=== PATIENT | female | born 1980 | race Two or more races ===

== ENCOUNTER → 2017-09-04 | Outpatient (CLI) | payer OTHER ==
[~2017-09-04] MED LIST: BIRTH CONTROL PILL PO; CIPR500T87 PO; HYDR-3237 PO; HYDR-3240 PO; LEVO750T26 PO; LISI-167 PO; SULF1TAB24 PO
[2017-09-04 16:25] LABS: BASOPHILS # (AUTO) 0.05 x10^3/uL (0-0.1); BASOPHILS % (AUTO) 0 % (0-1); EOSINOPHILS # (AUTO) 0.25 x10^3/uL (0-0.4); EOSINOPHILS % (AUTO) 2 % (1-7); LYMPHOCYTES # (AUTO) 3.26 x10^3/uL (1-3.4); LYMPHOCYTES % (AUTO) 26 % (22-44); MD NO; MEAN CORPUSCULAR HGB CONC 34.3 g/dL (32.4-35.8); MEAN CORPUSCULAR VOLUME 90.3 fL (80-100); MEAN PLATELET VOLUME 8.7 fL (7.4-10.4); MONOCYTES # (AUTO) 0.61 x10^3/uL (0.2-0.8); MONOCYTES % (AUTO) 5 % (2-9); NEUTROPHILS # (AUTO) 8.32 x10^3/uL (1.8-6.8); NEUTROPHILS % (AUTO) 67 % (42-75); PLATELET COUNT 342 x10^3/uL (130-400); RED BLOOD COUNT 4.36 x10^6/uL (3.82-5.3); RED CELL DISTRIBUTION WIDTH 13.3 % (9.6-15.2)
[2017-09-04 16:30] LABS: INTERNATIONAL NORMALIZED RATIO 0.96 (0.93-1.1); PROTHROMBIN TIME 9.9 Seconds (9.6-11.5)
[2017-09-04 16:34] LABS: ALANINE AMINOTRANSFERASE 40 U/L (12-78); ALBUMIN 3.8 g/dL (3.4-5.0); ANION GAP 9 mmol/L (5-15); CALCIUM 8.5 mg/dL (8.5-10.1); CHLORIDE 107 mmol/L (98-107); CREATININE 1.09 mg/dL (0.55-1.02)
[2017-09-04 16:35] LABS: ALKALINE PHOSPHATASE 112 U/L (45-117); BILIRUBIN,TOTAL 0.3 mg/dL (0.2-1.0); TOTAL PROTEIN 7.8 g/dL (6.4-8.2)
[2017-09-04 16:40] LABS: MICROSCOPIC NOT IND
== END | disposition home or self-care (01) ==
LOC: STAR 15:02
PROVIDERS: ATTEND Urology
DX: Z01.818 Encounter for other preprocedural examination (principal); N13.30 Unspecified hydronephrosis; Q62.11 Congenital occlusion of ureteropelvic junction
CPT/HCPCS: 36415; 80053; 81003; 85025; 85610; 85730; 87086

== ENCOUNTER 2017-09-15 05:38 | Day surgery (SDC) | payer OTHER ==
[~2017-09-15] VITALS: Ht 154.9 cm; Wt 73.9 kg
[2017-09-15] MEDS ORDERED: LACTATED RINGERS 1,000 ML IV SCH (06:04)
[2017-09-15 06:09] VITALS: BP 120/82
[2017-09-15 06:32] LABS: HCG UR SG 1.018 (1.003-1.030)
[2017-09-15] MEDS ORDERED: KETAMINE 10 MG/ML, 20ML ONE (06:40)
[2017-09-15] MEDS ORDERED: MIDAZOLAM 1 MG/ML, 2ML ONE (06:40)
[2017-09-15] MEDS ORDERED: FENTANYL PF 250 MCG/5ML ONE (06:41)
[2017-09-15] MEDS ORDERED: LIDOCAINE GEL 2%, 5ML ONE (06:41)
[2017-09-15] MEDS ORDERED: DEXAMETHASONE 4 MG/ML, 1ML ONE (06:41)
[2017-09-15] MEDS ORDERED: ONDANSETRON 2MG/ML, 2ML ONE (06:41)
[2017-09-15] MEDS ORDERED: PROPOFOL 10 MG/ML, 20ML ONE (06:41)
[2017-09-15] MEDS ORDERED: ROCURONIUM 10 MG/ML,10ML ONE (06:41)
[2017-09-15] MEDS ORDERED: BUPIVACAINE/PF 0.25% ONE (06:51)
[2017-09-15] MEDS ORDERED: EPINEPHRINE 1 MG/ML, 1ML ONE (06:51)
[2017-09-15] MEDS ORDERED: THROMBIN 5,000 UNIT VIAL TP ONE (06:51)
[2017-09-15] MEDS ORDERED: INDIGO CARMINE 0.8%, 5ML ONE (06:51)
[2017-09-15] MEDS ORDERED: GENTAMICIN 80 MG/2 ML ONE (08:09)
[2017-09-15] MEDS ORDERED: ONDANSETRON 2MG/ML, 2ML IVPush PRN (09:00)
[2017-09-15] MEDS ORDERED: HYDROmorphone 1 MG/ML, 1ML IV PRN (09:00)
[2017-09-15] MEDS ORDERED: EPHEDRINE 50 MG/ML, 1ML IVPush PRN (09:00)
[2017-09-15] MEDS ORDERED: PROMETHAZINE 25 MG/ML, 1ML IV PRN (09:00)
[2017-09-15] MEDS ORDERED: FENTANYL PF 100 MCG/2ML IV PRN (09:00)
[2017-09-15] MEDS ORDERED: MIDAZOLAM 1 MG/ML, 2ML IV PRN (09:00)
[2017-09-15] MEDS ORDERED: OXYcodone 5 MG/5 ML ORAL.SOL UDC PO PRN (09:00)
[2017-09-15] MEDS ORDERED: OMNIPAQUE 350 MG/ML, 50 ML BOTTLE ONE (09:21)
[2017-09-15] MEDS ORDERED: SUGAMMADEX 200 MG/2 ML IVPush ONE (09:30)
== END 2017-09-15 12:10 ==
LOC: OUT 05:38
PROVIDERS: ATTEND Urology
DX: N13.5 Crossing vessel and stricture of ureter without hydronephrosis (principal)
CPT/HCPCS: 52332; 52341; 74420; 81025; C1726; C1758; C1760; C1769; C2617; C2627; J0171; J1100; J1580; J2250; J2405; J2704; J3010; J3490; J7120; Q9967

== ENCOUNTER 2017-10-29 12:21 | Inpatient (IN) | payer OTHER ==
[~2017-10-29] VITALS: Ht 157.5 cm; Wt 75.1 kg
[2017-10-29 13:30] LABS: BASOPHILS % (AUTO) 1 % (0-1); EOSINOPHILS # (AUTO) 0.08 x10^3/uL (0-0.4); EOSINOPHILS % (AUTO) 1 % (1-7); LYMPHOCYTES % (AUTO) 17 % (22-44); MD NO; MEAN CORPUSCULAR HEMOGLOBIN 31.2 pg (27.0-34.8); MEAN CORPUSCULAR HGB CONC 34.4 g/dL (32.4-35.8); MEAN CORPUSCULAR VOLUME 90.8 fL (80-100); MEAN PLATELET VOLUME 8.8 fL (7.4-10.4); MONOCYTES # (AUTO) 1.36 x10^3/uL (0.2-0.8); MONOCYTES % (AUTO) 9 % (2-9); NEUTROPHILS # (AUTO) 11.45 x10^3/uL (1.8-6.8); NEUTROPHILS % (AUTO) 73 % (42-75); PLATELET COUNT 285 x10^3/uL (130-400); RED CELL DISTRIBUTION WIDTH 13.6 % (9.6-15.2)
[2017-10-29] MEDS ORDERED: SODIUM CHLORIDE FLUSH 10ML SYR IVF ONE (13:30)
[2017-10-29 13:42] LABS: ALBUMIN 3.5 g/dL (3.4-5.0); ANION GAP 7 mmol/L (5-15); CALCIUM 8.3 mg/dL (8.5-10.1); CHLORIDE 104 mmol/L (98-107); CREATININE 0.78 mg/dL (0.55-1.02)
[2017-10-29 13:45] LABS: CULTURE INDICATED? YES; MICROSCOPIC INDICATED
[2017-10-29] MEDS ORDERED: ONDANSETRON ODT 4 MG ONE (14:28)
[2017-10-29] MEDS ORDERED: CEFTRIAXONE PMX 1GM/50ML 50 ML ONE (14:29)
[2017-10-29] MEDS ORDERED: MORPHINE SULFATE 4 MG/ML, 1ML ONE ×2 (14:29→21:54)
[2017-10-29] MEDS ORDERED: ONDANSETRON ODT 4 MG PO ONE (14:30)
[2017-10-29] MEDS ORDERED: CEFTRIAXONE PMX 1GM/50ML 50 ML IVPB ONE (14:30)
[2017-10-29] MEDS ORDERED: MORPHINE SULFATE 4 MG/ML, 1ML IVPush PRN (14:30)
[2017-10-29] MEDS ORDERED: SODIUM CHLORIDE 0.9% 1,000ML IVBOLUS ONE (16:00)
[2017-10-29] MEDS ORDERED: SODIUM CHLORIDE 0.9% 1,000 ML IV ONE (16:45)
[2017-10-29] MEDS ORDERED: SODIUM CHLORIDE FLUSH 10ML SYR IVF PRN (17:00)
[2017-10-29] MEDS ORDERED: ONDANSETRON 2MG/ML, 2ML IVPush PRN (17:30)
[2017-10-29] MEDS ORDERED: hydrALAzine 20 MG/ML, 1ML IVPush PRN (17:30)
[2017-10-29] MEDS: SODIUM CHLORIDE 0.9% 1,000 ML IV SCH (18:20)
[2017-10-29] MEDS: ENOXAPARIN 40 MG/0.4 ML SQ SCH (18:21)
[2017-10-29 20:36] VITALS: BP 116/78
[2017-10-29] MEDS: morphine SULFATE 10 MG/ML, 1ML IVPush PRN (21:57)
[2017-10-30 01:33] VITALS: BP 108/69
[2017-10-30] MEDS ORDERED: MORPHINE SULFATE 4 MG/ML, 1ML ONE (05:16)
[2017-10-30] MEDS: morphine SULFATE 10 MG/ML, 1ML IVPush PRN (05:18)
[2017-10-30] MEDS: SODIUM CHLORIDE 0.9% 1,000 ML IV SCH ×2 (05:18)
[2017-10-30 05:36] LABS: BASOPHILS # (AUTO) 0.05 x10^3/uL (0-0.1); BASOPHILS % (AUTO) 0 % (0-1); EOSINOPHILS # (AUTO) 0.05 x10^3/uL (0-0.4); EOSINOPHILS % (AUTO) 0 % (1-7); LYMPHOCYTES % (AUTO) 14 % (22-44); MD NO; MEAN CORPUSCULAR HEMOGLOBIN 31.3 pg (27.0-34.8); MEAN CORPUSCULAR HGB CONC 34.5 g/dL (32.4-35.8); MEAN CORPUSCULAR VOLUME 90.8 fL (80-100); MEAN PLATELET VOLUME 8.7 fL (7.4-10.4); MONOCYTES # (AUTO) 0.82 x10^3/uL (0.2-0.8); MONOCYTES % (AUTO) 6 % (2-9); NEUTROPHILS # (AUTO) 10.19 x10^3/uL (1.8-6.8); NEUTROPHILS % (AUTO) 79 % (42-75); PLATELET COUNT 245 x10^3/uL (130-400); RED BLOOD COUNT 3.83 x10^6/uL (3.82-5.3); RED CELL DISTRIBUTION WIDTH 13.4 % (9.6-15.2)
[2017-10-30 05:52] LABS: CHLORIDE 106 mmol/L (98-107)
[2017-10-30 06:00] LABS: ALANINE AMINOTRANSFERASE 33 U/L (12-78); ALKALINE PHOSPHATASE 92 U/L (45-117); ANION GAP 6 mmol/L (5-15); BILIRUBIN,TOTAL 0.9 mg/dL (0.2-1.0); CALCIUM 7.9 mg/dL (8.5-10.1); CREATININE 0.73 mg/dL (0.55-1.02); TOTAL PROTEIN 6.8 g/dL (6.4-8.2)
[2017-10-30 06:40] VITALS: BP 105/68
[2017-10-30] MEDS ORDERED: POTASSIUM PHOSPHATE 44 MEQ in SODIUM CHLORIDE 0.9% 500 ML IV ONE (08:30)
[2017-10-30] MEDS: LISINOPRIL 10 MG TABLET PO SCH (08:58)
[2017-10-30 12:28] VITALS: BP 105/71
[2017-10-30] MEDS ORDERED: FUROSEMIDE 20 MG/2 ML ONE ×2 (13:56)
[2017-10-30] MEDS ORDERED: CEFTRIAXONE PMX 1GM/50ML 50 ML IV SCH (14:30)
[2017-10-30] MEDS: ENOXAPARIN 40 MG/0.4 ML SQ SCH (17:01)
[2017-10-30 19:02] VITALS: BP 109/70
[2017-10-30] MEDS: ACETAMINOPHEN 325 MG TABLET PO PRN (20:01)
[2017-10-31 02:49] VITALS: BP 93/62
[2017-10-31 05:08] LABS: BASOPHILS # (AUTO) 0.09 x10^3/uL (0-0.1); BASOPHILS % (AUTO) 1 % (0-1); EOSINOPHILS # (AUTO) 0.34 x10^3/uL (0-0.4); EOSINOPHILS % (AUTO) 3 % (1-7); LYMPHOCYTES % (AUTO) 17 % (22-44); MD NO; MEAN CORPUSCULAR HEMOGLOBIN 31.5 pg (27.0-34.8); MEAN CORPUSCULAR HGB CONC 34.7 g/dL (32.4-35.8); MEAN CORPUSCULAR VOLUME 90.8 fL (80-100); MEAN PLATELET VOLUME 8.6 fL (7.4-10.4); MONOCYTES # (AUTO) 0.81 x10^3/uL (0.2-0.8); MONOCYTES % (AUTO) 7 % (2-9); NEUTROPHILS # (AUTO) 8.83 x10^3/uL (1.8-6.8); NEUTROPHILS % (AUTO) 73 % (42-75); PLATELET COUNT 264 x10^3/uL (130-400); RED BLOOD COUNT 4.09 x10^6/uL (3.82-5.3); RED CELL DISTRIBUTION WIDTH 12.9 % (9.6-15.2)
[2017-10-31 05:17] LABS: ALBUMIN 3.1 g/dL (3.4-5.0); ANION GAP 8 mmol/L (5-15); CALCIUM 8.6 mg/dL (8.5-10.1); CHLORIDE 103 mmol/L (98-107)
[2017-10-31 05:20] LABS: CREATININE 0.75 mg/dL (0.55-1.02)
[2017-10-31] MEDS ORDERED: MORPHINE SULFATE 4 MG/ML, 1ML ONE (05:38)
[2017-10-31] MEDS: morphine SULFATE 10 MG/ML, 1ML IVPush PRN (05:41)
[2017-10-31 06:35] VITALS: BP 103/70
[2017-10-31] MEDS: LISINOPRIL 10 MG TABLET PO SCH (09:00)
[2017-10-31] MEDS: ACETAMINOPHEN 325 MG TABLET PO PRN (11:44)
[2017-10-31] MEDS: SODIUM CHLORIDE 0.9% 1,000 ML IV SCH (11:44)
[2017-10-31 12:35] VITALS: BP 96/63
[2017-10-31] MEDS ORDERED: ERTAPENEM 1 GM in SODIUM CHLORIDE 0.9% 50 ML IV SCH (15:30)
[2017-10-31] MEDS: ENOXAPARIN 40 MG/0.4 ML SQ SCH (15:37)
[2017-10-31 18:46] VITALS: BP 110/75
[2017-11-01 02:04] VITALS: BP 101/70
[2017-11-01] MEDS: SODIUM CHLORIDE 0.9% 1,000 ML IV SCH ×2 (03:33→19:53)
[2017-11-01 07:43] VITALS: BP 114/77
[2017-11-01] MEDS: LISINOPRIL 10 MG TABLET PO SCH (09:00)
[2017-11-01] MEDS ORDERED: LIDOCAINE-MPF 1%, 5ML ONE (09:30)
[2017-11-01] MEDS ORDERED: FLUMAZENIL 0.1 MG/1 ML, 5ML ONE (10:16)
[2017-11-01] MEDS ORDERED: MIDAZOLAM 1 MG/ML, 5ML ONE (10:16)
[2017-11-01] MEDS ORDERED: FENTANYL PF 100 MCG/2ML ONE ×2 (10:16)
[2017-11-01] MEDS ORDERED: NALOXONE 1 MG/ML, 2ML ONE (10:16)
[2017-11-01] MEDS ORDERED: FOSFOMYCIN 3 GM PACKET PO ONE (12:00)
[2017-11-01 14:15] VITALS: BP 104/71
[2017-11-01] MEDS ORDERED: MORPHINE SULFATE 4 MG/ML, 1ML ONE ×2 (16:44→19:50)
[2017-11-01] MEDS: morphine SULFATE 10 MG/ML, 1ML IVPush PRN ×2 (16:47→19:54)
[2017-11-01] MEDS: ENOXAPARIN 40 MG/0.4 ML SQ SCH (17:30)
[2017-11-01 20:13] VITALS: BP 105/69
[2017-11-01] MEDS: ACETAMINOPHEN 325 MG TABLET PO PRN (23:40)
[2017-11-02 01:13] VITALS: BP 100/63
[2017-11-02 05:02] LABS: BASOPHILS # (AUTO) 0.05 x10^3/uL (0-0.1); BASOPHILS % (AUTO) 1 % (0-1); EOSINOPHILS # (AUTO) 0.28 x10^3/uL (0-0.4); EOSINOPHILS % (AUTO) 4 % (1-7); LYMPHOCYTES % (AUTO) 27 % (22-44); MD NO; MEAN CORPUSCULAR HEMOGLOBIN 30.8 pg (27.0-34.8); MEAN CORPUSCULAR HGB CONC 34.6 g/dL (32.4-35.8); MEAN PLATELET VOLUME 7.8 fL (7.4-10.4); MONOCYTES # (AUTO) 0.57 x10^3/uL (0.2-0.8); MONOCYTES % (AUTO) 8 % (2-9); NEUTROPHILS # (AUTO) 4.38 x10^3/uL (1.8-6.8); NEUTROPHILS % (AUTO) 61 % (42-75); PLATELET COUNT 285 x10^3/uL (130-400); RED BLOOD COUNT 3.58 x10^6/uL (3.82-5.3); RED CELL DISTRIBUTION WIDTH 13.3 % (9.6-15.2)
[2017-11-02 05:12] LABS: ANION GAP 8 mmol/L (5-15); CALCIUM 7.8 mg/dL (8.5-10.1); CHLORIDE 109 mmol/L (98-107)
[2017-11-02] MEDS: SODIUM CHLORIDE 0.9% 1,000 ML IV SCH ×2 (06:00→17:31)
[2017-11-02 08:12] VITALS: BP 114/76
[2017-11-02] MEDS: LISINOPRIL 10 MG TABLET PO SCH (09:09)
[2017-11-02] MEDS ORDERED: MORPHINE SULFATE 4 MG/ML, 1ML IVPush PRN (14:25)
[2017-11-02] MEDS: ACETAMINOPHEN 325 MG TABLET PO PRN (14:31)
[2017-11-02 15:22] VITALS: BP 117/81
[2017-11-02] MEDS: ENOXAPARIN 40 MG/0.4 ML SQ SCH (17:30)
[2017-11-02 18:58] VITALS: BP 119/79
[2017-11-03 02:34] VITALS: BP 101/66
[2017-11-03] MEDS: SODIUM CHLORIDE 0.9% 1,000 ML IV SCH ×2 (03:37→13:00)
[2017-11-03 08:03] VITALS: BP 107/68
[2017-11-03] MEDS ORDERED: FOSFOMYCIN 3 GM PACKET PO ONE (09:30)
[2017-11-03] MEDS: LISINOPRIL 10 MG TABLET PO SCH (10:32)
[2017-11-03] MEDS ORDERED: ACET650S21 PO (11:00)
[2017-11-03] MEDS ORDERED: FOSF3PAC PO (11:00)
[2017-11-03 13:55] VITALS: BP 117/78
[2017-11-03] MEDS: ENOXAPARIN 40 MG/0.4 ML SQ SCH (17:30)
== END 2017-11-03 18:04 | disposition home or self-care (01) | DRG 694 ==
LOC: ED 14:52 → EDIP 16:45 → 3NE 17:42
PROVIDERS: ADMIT Internal Medicine Pulmonary Disease; ATTEND Internal Medicine Pulmonary Disease
PROC: 0T903ZZ Drainage of Right Kidney, Percutaneous Approach (ICD-10-PCS; principal; 2017-11-01)
DX: N13.2 Hydronephrosis with renal and ureteral calculous obstruction (principal); K76.0 Fatty (change of) liver, not elsewhere classified; Z93.6 Other artificial openings of urinary tract status; N10 Acute pyelonephritis; E86.0 Dehydration; I10 Essential (primary) hypertension; N85.2 Hypertrophy of uterus; Z16.12 Extended spectrum beta lactamase (ESBL) resistance; Z87.440 Personal history of urinary (tract) infections; Z87.442 Personal history of urinary calculi; Z90.5 Acquired absence of kidney; Z79.899 Other long term (current) drug therapy
CPT/HCPCS: 36415; 50432; 74176; 78708; 80048; 80053; 81001; 82040; 83735; 84100; 84703; 85025; 87077; 87086; 87186; 96365; 96375; 99156; 99157; C1894; J0696; J1335; J2250; J2405; J3010; Q0162; A9562; C1729; C9898; J1940; J2270; J2310; J7030; J7040

== ENCOUNTER 2017-11-15 15:18 | Emergency (ER) | payer OTHER ==
[~2017-11-15] VITALS: Ht 157.5 cm; Wt 74.2 kg
[~2017-11-15 15:18] MED LIST changes: +ACET650S21 PO; +FOSF3PAC PO
[2017-11-15 17:24] LABS: BASOPHILS # (AUTO) 0.07 x10^3/uL (0-0.1); BASOPHILS % (AUTO) 1 % (0-1); EOSINOPHILS # (AUTO) 0.28 x10^3/uL (0-0.4); EOSINOPHILS % (AUTO) 3 % (1-7); LYMPHOCYTES # (AUTO) 2.77 x10^3/uL (1-3.4); LYMPHOCYTES % (AUTO) 27 % (22-44); MD NO; MEAN CORPUSCULAR HEMOGLOBIN 30.4 pg (27.0-34.8); MEAN CORPUSCULAR HGB CONC 33.9 g/dL (32.4-35.8); MEAN CORPUSCULAR VOLUME 89.6 fL (80-100); MEAN PLATELET VOLUME 8.1 fL (7.4-10.4); MONOCYTES # (AUTO) 0.59 x10^3/uL (0.2-0.8); MONOCYTES % (AUTO) 6 % (2-9); NEUTROPHILS % (AUTO) 64 % (42-75); PLATELET COUNT 382 x10^3/uL (130-400); RED BLOOD COUNT 3.56 x10^6/uL (3.82-5.3); RED CELL DISTRIBUTION WIDTH 13.7 % (9.6-15.2)
[2017-11-15 17:30] LABS: ALBUMIN 3.3 g/dL (3.4-5.0); ANION GAP 7 mmol/L (5-15); CALCIUM 8.5 mg/dL (8.5-10.1); CHLORIDE 108 mmol/L (98-107); CREATININE 0.71 mg/dL (0.55-1.02)
[2017-11-15 19:52] VITALS: BP 134/85
== END 2017-11-15 20:19 | disposition home or self-care (01) ==
LOC: ED 19:45
DX: T83.81XA Embolism due to genitourinary prosthetic devices, implants and grafts, initial encounter (principal); Y84.8 Other medical procedures as the cause of abnormal reaction of the patient, or of later complication, without mention of misadventure at the time of the procedure; Y92.89 Other specified places as the place of occurrence of the external cause
CPT/HCPCS: 36415; 74176; 80048; 82040; 85025; 99285

== ENCOUNTER → 2017-12-12 | Outpatient (CLI) | payer OTHER ==
[2017-12-12 10:54] LABS: BASOPHILS # (AUTO) 0.07 x10^3/uL (0-0.1); BASOPHILS % (AUTO) 1 % (0-1); EOSINOPHILS # (AUTO) 0.32 x10^3/uL (0-0.4); EOSINOPHILS % (AUTO) 4 % (1-7); LYMPHOCYTES # (AUTO) 2.43 x10^3/uL (1-3.4); LYMPHOCYTES % (AUTO) 28 % (22-44); MD NO; MEAN CORPUSCULAR HGB CONC 33.8 g/dL (32.4-35.8); MEAN CORPUSCULAR VOLUME 88.7 fL (80-100); MEAN PLATELET VOLUME 8.3 fL (7.4-10.4); MONOCYTES # (AUTO) 0.44 x10^3/uL (0.2-0.8); MONOCYTES % (AUTO) 5 % (2-9); NEUTROPHILS # (AUTO) 5.49 x10^3/uL (1.8-6.8); NEUTROPHILS % (AUTO) 63 % (42-75); PLATELET COUNT 322 x10^3/uL (130-400); RED CELL DISTRIBUTION WIDTH 13.7 % (9.6-15.2)
[2017-12-12 11:02] LABS: INTERNATIONAL NORMALIZED RATIO 0.94 (0.93-1.1); PROTHROMBIN TIME 9.8 Seconds (9.6-11.5)
[2017-12-12 11:04] LABS: MICROSCOPIC AUTO
[2017-12-12 11:05] LABS: ALANINE AMINOTRANSFERASE 30 U/L (12-78); ALBUMIN 3.5 g/dL (3.4-5.0); ANION GAP 7 mmol/L (5-15); CALCIUM 8.2 mg/dL (8.5-10.1); CHLORIDE 108 mmol/L (98-107); CREATININE 0.64 mg/dL (0.55-1.02)
[2017-12-12 11:08] LABS: ALKALINE PHOSPHATASE 102 U/L (45-117); BILIRUBIN,TOTAL 0.4 mg/dL (0.2-1.0); TOTAL PROTEIN 7.3 g/dL (6.4-8.2)
== END | disposition home or self-care (01) ==
LOC: STAR 09:29
PROVIDERS: ATTEND Urology
DX: Z01.818 Encounter for other preprocedural examination (principal); N13.5 Crossing vessel and stricture of ureter without hydronephrosis
CPT/HCPCS: 36415; 80053; 81001; 85025; 85610; 85730; 87086; 93005

== ENCOUNTER 2017-12-20 10:58 | Inpatient (IN) | payer OTHER ==
[2017-12-12 10:22] VITALS: BP 120/86
[~2017-12-20] VITALS: Ht 157.5 cm; Wt 70.3 kg
[2017-12-20] MEDS ORDERED: LACTATED RINGERS 1,000 ML IV SCH (11:23)
[2017-12-20 11:28] LABS: HCG UR SG 1.027 (1.003-1.030)
[2017-12-20] MEDS ORDERED: ONDANSETRON ODT 8 MG PO ONE (11:30)
[2017-12-20] MEDS ORDERED: OXYcodone IR 5MG TABLET PO ONE (11:30)
[2017-12-20] MEDS ORDERED: GABAPENTIN 300 MG CAPSULE PO ONE (11:30)
[2017-12-20] MEDS ORDERED: ACETAMINOPHEN 500 MG TABLET PO ONE (11:30)
[2017-12-20] MEDS ORDERED: FAMOTIDINE 20 MG TABLET PO ONE (11:30)
[2017-12-20] MEDS ORDERED: SCOPOLAMINE PATCH, 1.5MG PATCH.TD72 TD ONE (11:30)
[2017-12-20] MEDS ORDERED: CIPROFLOXACIN/PMX 400MG/200ML 200 ML IV ONE (12:30)
[2017-12-20] MEDS ORDERED: FENTANYL PF 100 MCG/2ML ONE ×2 (13:01→20:20)
[2017-12-20] MEDS ORDERED: MIDAZOLAM 1 MG/ML, 2ML ONE (13:01)
[2017-12-20] MEDS ORDERED: EPINEPHRINE 1 MG/ML, 1ML ONE (13:02)
[2017-12-20] MEDS ORDERED: BUPIVACAINE/PF 0.25% ONE (13:02)
[2017-12-20] MEDS ORDERED: SUCCINYLCHOLINE 20 MG/ML, 10ML ONE (13:20)
[2017-12-20] MEDS ORDERED: PROPOFOL 10 MG/ML, 20ML ONE (13:20)
[2017-12-20] MEDS ORDERED: NEOSTIGMINE 1 MG/ML, 10ML ONE (13:20)
[2017-12-20] MEDS ORDERED: DEXAMETHASONE 4 MG/ML, 1ML ONE (13:20)
[2017-12-20] MEDS ORDERED: ROCURONIUM 10 MG/ML,10ML ONE (13:20)
[2017-12-20] MEDS ORDERED: GLYCOPYRROLATE 0.2MG/1ML, 5ML ONE (13:20)
[2017-12-20] MEDS ORDERED: ONDANSETRON 2MG/ML, 2ML ONE (13:20)
[2017-12-20] MEDS ORDERED: HYDROcodone/APAP 7.5-325MG/15ML UDC PO PRN (15:00)
[2017-12-20] MEDS ORDERED: MIDAZOLAM 1 MG/ML, 2ML IV PRN (15:00)
[2017-12-20] MEDS ORDERED: MEPERIDINE/PF 25MG/0.5ML IVPush PRN (15:00)
[2017-12-20] MEDS ORDERED: LABETALOL 5MG/ML, 20ML IV PRN (15:00)
[2017-12-20] MEDS ORDERED: DIAZEPAM 5 MG/ML, 2ML IVPush PRN (15:00)
[2017-12-20] MEDS ORDERED: FENTANYL PF 100 MCG/2ML IV PRN (15:00)
[2017-12-20] MEDS ORDERED: ALBUTEROL SULFATE 2.5 MG/3 ML NPPB PRN (15:00)
[2017-12-20] MEDS ORDERED: EPHEDRINE 50 MG/ML, 1ML IVPush PRN (15:00)
[2017-12-20] MEDS ORDERED: PROMETHAZINE 25 MG/ML, 1ML IV PRN (15:00)
[2017-12-20] MEDS ORDERED: hydrALAzine 20 MG/ML, 1ML IV PRN (15:00)
[2017-12-20] MEDS ORDERED: HALOPERIDOL 5 MG/ML IV PRN (15:00)
[2017-12-20] MEDS ORDERED: OXYcodone 5 MG/5 ML ORAL.SOL UDC PO PRN (15:00)
[2017-12-20] MEDS ORDERED: THROMBIN 5,000 UNIT VIAL TP ONE (15:44)
[2017-12-20] MEDS ORDERED: OXYcodone 5 MG/5 ML ORAL.SOL UDC ONE (19:32)
[2017-12-20] MEDS ORDERED: HYDROmorphone 1 MG/ML, 1ML ONE (19:32)
[2017-12-20] MEDS: HYDROmorphone 1 MG/ML, 1ML IV PRN ×2 (19:39→19:46)
[2017-12-20] MEDS ORDERED: ONDANSETRON 2MG/ML, 2ML IV PRN (22:30)
[2017-12-20] MEDS ORDERED: Postop antibiotic to be continued for longer than 24 hours XX PRN (22:30)
[2017-12-20] MEDS: D5%-0.45NACL+KCL 20MEQ 1,000 ML IV SCH (22:56)
[2017-12-20] MEDS: CIPROFLOXACIN/PMX 400MG/200ML 200 ML IVPB SCH (22:56)
[2017-12-21 02:08] VITALS: BP 106/72
[2017-12-21 09:44] VITALS: BP 111/74
[2017-12-21] MEDS: CIPROFLOXACIN/PMX 400MG/200ML 200 ML IVPB SCH ×2 (11:05→22:54)
[2017-12-21] MEDS: D5%-0.45NACL+KCL 20MEQ 1,000 ML IV SCH ×2 (11:41→21:31)
[2017-12-21 12:56] VITALS: BP 110/75
[2017-12-21 19:13] VITALS: BP 110/73
[2017-12-22 04:01] VITALS: BP 111/72
[2017-12-22 04:53] LABS: ANION GAP 5 mmol/L (5-15); CALCIUM 7.7 mg/dL (8.5-10.1); CHLORIDE 103 mmol/L (98-107)
[2017-12-22 07:08] VITALS: BP 107/67
[2017-12-22] MEDS: D5%-0.45NACL+KCL 20MEQ 1,000 ML IV SCH ×2 (12:32→23:59)
[2017-12-22] MEDS: CIPROFLOXACIN/PMX 400MG/200ML 200 ML IVPB SCH ×2 (12:32→22:44)
[2017-12-22 14:30] VITALS: BP 102/70
[2017-12-22] MEDS: HYDROcodone/APAP 10/325 MG TABLET PO PRN (20:23)
[2017-12-22 21:32] VITALS: BP 103/68
[2017-12-23 00:17] VITALS: BP 109/69
[2017-12-23] MEDS: HYDROcodone/APAP 10/325 MG TABLET PO PRN ×4 (02:57→21:34)
[2017-12-23 08:11] VITALS: BP 102/69
[2017-12-23] MEDS: D5%-0.45NACL+KCL 20MEQ 1,000 ML IV SCH ×2 (10:54→13:36)
[2017-12-23] MEDS: CIPROFLOXACIN/PMX 400MG/200ML 200 ML IVPB SCH ×2 (11:17→23:05)
[2017-12-23 14:30] VITALS: BP 124/87
[2017-12-23 20:57] VITALS: BP 129/79
[2017-12-24 03:46] VITALS: BP 105/68
[2017-12-24] MEDS: D5%-0.45NACL+KCL 20MEQ 1,000 ML IV SCH (05:00)
[2017-12-24 08:56] VITALS: BP 116/82
[2017-12-24] MEDS: CIPROFLOXACIN/PMX 400MG/200ML 200 ML IVPB SCH (10:58)
[2017-12-24 14:21] VITALS: BP 114/77
[2017-12-24] MEDS: HYDROcodone/APAP 10/325 MG TABLET PO PRN (17:58)
== END 2017-12-24 18:05 | disposition home or self-care (01) | DRG 660 ==
LOC: ORIP 10:58 → EDSTATUS 13:00 → 4NOR 21:00
PROVIDERS: ADMIT Urology; ATTEND Urology
PROC: 06B90ZZ Excision of Right Renal Vein, Open Approach (ICD-10-PCS; 2017-12-20)
PROC: 0TP5X0Z Removal of Drainage Device from Kidney, External Approach (ICD-10-PCS; 2017-12-20)
PROC: 0TT00ZZ Resection of Right Kidney, Open Approach (ICD-10-PCS; principal; 2017-12-20 13:00)
DX: N11.1 Chronic obstructive pyelonephritis (principal); J98.11 Atelectasis; N20.0 Calculus of kidney; Z90.5 Acquired absence of kidney
CPT/HCPCS: 36415; 71045; 74018; 80048; 81025; 85014; 85018; 86850; 86900; 86923; 88307; 88311; J0171; J0744; J1100; J1170; J2250; J2270; J2405; J2704; J2710; J3010; J3490; Q0162; J0330; J3480; J7120

== ENCOUNTER 2020-05-12 16:17 | Emergency (ER) | payer OTHER ==
[~2020-05-12] VITALS: Ht 154.9 cm; Wt 75.1 kg
[2020-05-12] MEDS ORDERED: KETOROLAC 30 MG/1 ML ONE (17:20)
[2020-05-12] MEDS ORDERED: SUMATRIPTAN 6MG/0.5ML SQ ONE ×2 (17:20→17:30)
[2020-05-12] MEDS ORDERED: DIPHENHYDRAMINE 50 MG/ML, 1ML ONE (17:20)
[2020-05-12] MEDS ORDERED: PROCHLORPERAZINE 5 MG/ML, 2ML ONE (17:20)
--- NOTE | 2020-05-12 17:29 | NUR ---
ERMD IN TO EVAL PT. PIV INITIATED, PT MEDICATED PER MAR
[2020-05-12] MEDS ORDERED: SODIUM CHLORIDE FLUSH 10ML SYR IVF ONE (17:30)
[2020-05-12] MEDS ORDERED: DIPHENHYDRAMINE 50 MG/ML, 1ML IVPush ONE (17:30)
[2020-05-12] MEDS ORDERED: KETOROLAC 30 MG/1 ML IVPush ONE (17:30)
[2020-05-12] MEDS ORDERED: PROCHLORPERAZINE 5 MG/ML, 2ML IVPush ONE (17:30)
[2020-05-12 18:03] LABS: BASOPHILS % (AUTO) 1 % (0-1); EOSINOPHILS % (AUTO) 3 % (1-7); LYMPHOCYTES % (AUTO) 31 % (22-44); MEAN CORPUSCULAR HEMOGLOBIN 29.5 pg (27.0-34.8); MEAN CORPUSCULAR HGB CONC 33.4 g/dL (32.4-35.8); MEAN PLATELET VOLUME 8.8 fL (7.4-10.4); MONOCYTES % (AUTO) 6 % (2-9); NEUTROPHILS % (AUTO) 60 % (42-75); PLATELET COUNT 281 x10^3/uL (130-400); RED CELL DISTRIBUTION WIDTH 13.9 % (9.6-15.2)
[2020-05-12 18:06] LABS: MD NO
[2020-05-12 18:11] LABS: ALANINE AMINOTRANSFERASE 22 U/L (12-78); ALBUMIN 3.9 g/dL (3.4-5.0); ANION GAP 6 mmol/L (5-15); CALCIUM 8.9 mg/dL (8.5-10.1); CHLORIDE 109 mmol/L (98-107); CREATININE 0.77 mg/dL (0.55-1.02)
[2020-05-12 18:16] LABS: ALKALINE PHOSPHATASE 99 U/L (45-117); BILIRUBIN,TOTAL 0.4 mg/dL (0.2-1.0); TOTAL PROTEIN 7.8 g/dL (6.4-8.2); TROPONIN I < 0.015 ng/mL (0.000-0.045)
--- NOTE | 2020-05-12 18:26 | NUR ---
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
--- NOTE | 2020-05-12 18:47 | NUR ---
BEDSIDE REPORT FROM STEPHIE NICHOLS, PT CARE TRANSFERRED AT THIS TIME, PT NAD, UP FOR RECHECK. BRADY.
[2020-05-12 18:50] VITALS: BP 135/88
--- NOTE | 2020-05-12 19:51 | NUR ---
Patient given discharge instructions and they have confirmed that they understand the instructions. Patient ambulatory with steady gait. NAD, DENIES ADDITIONAL QUESTIONS OR NEEDS AT THIS TIME. NO BELONGINGS LEFT IN ROOM AFTER DC.
== END 2020-05-12 19:53 | disposition home or self-care (01) ==
LOC: ED 19:45
DX: G43.C0 Periodic headache syndromes in child or adult, not intractable (principal); R07.89 Other chest pain; R94.31 Abnormal electrocardiogram [ECG] [EKG]; I10 Essential (primary) hypertension
CPT/HCPCS: 36415; 70450; 71045; 80053; 84484; 84703; 85025; 93005; 96372; 96374; 96375; 99285; J0780; J1200; J1885; J3030

== ENCOUNTER 2021-04-19 14:01 | Emergency (ER) | payer OTHER ==
[~2021-04-19] VITALS: Ht 157.5 cm; Wt 74.2 kg
[~2021-04-19 14:01] MED LIST changes: +HYDR-2214 PO; -HYDR-3240 PO; +SULF-23 PO; -SULF1TAB24 PO
[2021-04-19 15:43] LABS: BASOPHILS % (AUTO) 1 % (0-1); EOSINOPHILS % (AUTO) 4 % (1-7); LYMPHOCYTES % (AUTO) 30 % (22-44); MEAN CORPUSCULAR HEMOGLOBIN 30.3 pg (27.0-34.8); MEAN CORPUSCULAR HGB CONC 33.9 g/dL (32.4-35.8); MEAN PLATELET VOLUME 8.7 fL (7.4-10.4); MONOCYTES % (AUTO) 5 % (2-9); NEUTROPHILS % (AUTO) 61 % (42-75); PLATELET COUNT 277 x10^3/uL (130-400); RED BLOOD COUNT 4.36 x10^6/uL (3.82-5.3); RED CELL DISTRIBUTION WIDTH 13.8 % (9.6-15.2)
[2021-04-19 15:59] LABS: ALBUMIN 3.4 g/dL (3.4-5.0); ANION GAP 2 mmol/L (5-15); CALCIUM 8.1 mg/dL (8.5-10.1); CHLORIDE 109 mmol/L (98-107)
[2021-04-19 16:06] LABS: ALANINE AMINOTRANSFERASE 21 U/L (12-78); ALKALINE PHOSPHATASE 98 U/L (45-117); BILIRUBIN,TOTAL 0.4 mg/dL (0.2-1.0); CREATININE 0.81 mg/dL (0.55-1.02); TOTAL PROTEIN 7.6 g/dL (6.4-8.2); TROPONIN I < 0.015 ng/mL (0.000-0.045)
[2021-04-19 17:16] VITALS: BP 130/74
== END 2021-04-19 17:28 | disposition home or self-care (01) ==
LOC: ED 17:22
DX: R07.89 Other chest pain (principal); R07.2 Precordial pain; I10 Essential (primary) hypertension
CPT/HCPCS: 36415; 71045; 80053; 84484; 85025; 93005; 99285